=== PATIENT | male | born 2005 | race Caucasian/White ===

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

== ENCOUNTER 2025-01-28 15:10 | Emergency (ER) | payer OTHER, SELFPAY ==
[2025-01-28 15:47] VITALS: BP 159/70; PULSE 81; RESP 14; TEMP 37; O2SAT 99; BMI 30.3
--- NOTE | 2025-01-28 15:53 | DI.RAD.S_ITS ---
PROCEDURE: XR ANKLE LT MIN 3V INDICATIONS: injury TECHNIQUE: 3 views of the ankle were acquired. COMPARISON: None. FINDINGS: Bones: No fractures or dislocations. Ankle mortise is normally aligned. No suspicious bony lesions. Soft tissues: No tibiotalar joint effusion. Achilles tendon appears normal. IMPRESSION: No acute bony abnormality or significant effusion. Dictated by: Eduardo Blue M.D. on 01/28/2025 at 15:46 Approved by: Eduardo Blue M.D. on 01/28/2025 at 15:47
[2025-01-28 17:40] VITALS: O2SAT 99
[2025-01-28 17:41] VITALS: BP 141/76; PULSE 61; O2SAT 100
[2025-01-28 18:00] VITALS: PULSE 67; O2SAT 99
[2025-01-28 18:01] VITALS: BP 130/77; PULSE 61; O2SAT 98
--- NOTE | 2025-01-28 18:01 | ED.LOWEXIN ---
HPI - Extremity Injury (Lower) General Chief Complaint: Extremity Injury, Lower Stated Complaint: L ankle pain, twisted Time Seen by Provider: 01/28/25 18:01 Source: patient Mode of arrival: Ambulatory History of Present Illness HPI Narrative: 19-year-old male twisted in his left ankle by one-week ago, has been walking around on it, persisting pain, 1st visit for this, no other injuries. Denies pain specifically to the left upper mid calf, knee, thigh, hip. Denies back pain problems. Denies foot toe problems. No previous interventions on this ankle. Related Data Home Medications ?Medication ?Instructions ?Recorded ?Confirmed cephalexin 500 mg capsule 500 mg PO TID 01/24/21 01/25/21 Allergies Allergy/AdvReac Type Severity Reaction Status Date / Time No Known Drug Allergies Allergy Verified 11/18/24 06:37 Patient History Social History Smoking Status: Never smoker Smoking Status: Never smoker alcohol intake frequency: 0-2 drinks per day Exam Narrative Exam Narrative: GENERAL: Well-developed patient, in mild distress. HEAD: Atraumatic. Normocephalic. EYES: Pupils equal round and reactive. Extraocular motions intact. No scleral icterus. No injection or drainage. ENT: No obvious craniofacial injuries, no facial droop. NECK: Trachea midline. Non tender CARDIOVASCULAR: Regular rate and rhythm without murmurs, gallops, or rubs. RESPIRATORY: Clear to auscultation. Breath sounds equal bilaterally. No wheezes, rales, or rhonchi. GASTROINTESTINAL: Abdomen soft, non-tender, nondistended. EXTREMITIES: Mild tenderness to left lateral malleolar posterior aspect, not at tip or anterior surface, no gross deformity. No tenderness to foot that 5th MCP or dorsal or plantar aspect, or along Achilles tendon or calcaneus. BACK: Nontender without deformity or crepitance. No flank tenderness. NEURO: AOx3. Motor functions grossly nonfocal. SKIN: No rash or erythema of visible areas Initial Vital Signs Initial Vital Signs: Vital Signs Temperature 98.6 F 01/28/25 15:47 Pulse Rate 81 01/28/25 15:47 Respiratory Rate 14 01/28/25 15:47 Blood Pressure 159/70 H 01/28/25 15:47 Pulse Oximetry 99 01/28/25 15:47 Oxygen Delivery Method Room Air 01/28/25 15:47 Course Orders Ordered: ED Orders 01/28/25 15:53 XR ankle LT min 3V Stat Vital Signs Vital signs: Vital Signs - 8 hr 01/28/25 15:47 01/28/25 17:40 01/28/25 17:41 Temperature 98.6 F Pulse Rate 81 Respiratory Rate 14 Blood Pressure 159/70 H 141/76 H Pulse Oximetry 99 99 Oxygen Delivery Method Room Air 01/28/25 17:41 Temperature Pulse Rate 61 Respiratory Rate Blood Pressure Pulse Oximetry 100 Oxygen Delivery Method Room Air MDM - Extremity Injury (Lower) Imaging Data Extremity x-ray #1: Radiologist's Impression: [address] [address] XRay Report Signed Patient: Guillaume Holland MR#: [id number] : 2005 Acct:[id number] Age/Sex: 19 / M Date of Service: 01/28/25 Loc: ED Accession Number: [id number] Procedure: XR ankle LT min 3V Ordering Provider: Carmita Bentley MD PROCEDURE: XR ANKLE LT MIN 3V INDICATIONS: injury TECHNIQUE: 3 views of the ankle were acquired. COMPARISON: None. FINDINGS: Bones: No fractures or dislocations. Ankle mortise is normally aligned. No suspicious bony lesions. Soft tissues: No tibiotalar joint effusion. Achilles tendon appears normal. IMPRESSION: No acute bony abnormality or significant effusion. Dictated by: Eduardo Blue M.D. on 01/28/2025 at 15:46 Approved by: Eduardo Blue M.D. on 01/28/2025 at 15:[address] [facility] Narrative Medical decision making narrative: 19-year-old with left ankle pain after scooter injury one-week ago, persisting pain, no gross deformity. Mild tenderness left lateral malleolar region. X-ray left ankle sent from triage was negative for injury. He declines any splinting aircast DEAN wrap support. Advised use of [id number] medications as needed. Recheck with PCP if not improving this week. Discharge Plan Departure Patient Disposition: Home Clinical Impression: Left ankle strain Activity Restrictions/Additional Instructions: Left ankle pain persisting after scooter injury about a week ago. No gross deformity. Some lateral posterior ankle area tenderness on examination. X-rays negative for fracture, per Radiology report. We discussed various splinting and Dean wraps, declined for now. Advised to use [id number] Tylenol and or Motrin as needed for pain control. Recheck with your regular doctor in clinic later this week if not further improving. Return to this/nearest emergency department for any change worsening symptoms or any concerns prior. Prescriptions: No Action cephalexin 500 mg capsule 500 mg PO TID Patient Comments: take 1 capsule by mouth three times a day for 5 days Referrals: Miscellaneous,Doctor, MD [Primary Care Provider, Medical] Stand Alone Forms: Patient Portal/API
[2025-01-28 18:30] VITALS: BP 135/75; PULSE 62; O2SAT 99
== END 2025-01-28 18:47 | disposition home or self-care (01) ==
PROVIDERS: Emergency Provider Emergency Medicine
DX: S96.912A Strain of unspecified muscle and tendon at ankle and foot level, left foot, initial encounter (principal); X50.1XXA Overexertion from prolonged static or awkward postures, initial encounter
CPT/HCPCS: 73610; 99281; 99283